=== PATIENT | male | born 1995 | race Caucasian/White ===

== ENCOUNTER → 2018-01-17 16:49 | Outpatient (CLI) | payer OTHER, SELFPAY ==
--- NOTE | 2018-01-17 16:59 | RAD_ITS ---
HISTORY: low back pain COMPARISON: None FINDINGS: Mild levoscoliosis which measures approximately 15. Straightening of the lumbar spine with loss of the normal lumbar lordosis. Lumbar vertebra are normal in height. No fracture. Disc space heights are grossly preserved. Posterior elements appear intact. No spondylolisthesis. SI joints appear preserved. RAD/L/S Spine Min 4 Views IMPRESSION: 1. Mild lumbar levoscoliosis with loss of the normal lumbar lordosis. 2. No fracture or bony abnormality. at 0103 Reported and signed by: Roberto Alexandre MD Electronically Signed: Roberto Alexandre, at 1:00 EST Tel , Service support ,
== END ==
LOC: MTLAB 16:56 → MTRAD 16:58
PROVIDERS: Family Provider Family Medicine; PCP Family Medicine; Referring Provider Family Medicine; Visit Provider Family Medicine
DX: M54.5 Low back pain (principal)
CPT/HCPCS: 72110

== ENCOUNTER 2018-03-04 13:00 | Outpatient (RCR) | payer OTHER, SELFPAY ==
--- NOTE | 2018-01-26 10:04 | HP.PTEVAL ---
Patient's Visit Information KATELYNN FLORES is a 22 year old M referred to Physical Therapy by Rome Quintero with a diagnosis of LOW BACK PAIN. Date of Evaluation: 01/26/18 Physical Therapist: Leeanne Quinones Visit Plan Frequency: 2-3x /Week Duration: 4-6 Weeks Plan: POSTURE CORRECTION/STRENGTHENING, INSTRUCTION IN APPROPRIATE BODY MECHANICS AND ACTIVITY MODIFICATIONS. DLS STARTING WITH A NEUTRAL SPINE PROGRESSING ROM TOLERATED. KEITH LE ROM, STRETCHING AND STRENGTHENING. HEP INSTRUCTION. - Subjective Subjective: *GOES BY KIRAN*. Work/Leisure: UNEMPLOYEED. WAS WORKING FOR [employer] ABOUT A MONTH ON [employer] UNTIL EARLY LAST MONTH BUT QUIT HIS JOB DUE TO HIS BACK PAIN. 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 GRADUATED WITH A DEGREE IN HEALTH AND HUMAN PERFORMANCE FROM [employer] JULY 2017. PLAYED TENNIS IN COLLEGE FOR 4 YEARS. SOCIAL - LIVING WITH PARENTS. Disability: NO. Present symptoms: LEFT LOW BACK ONLY. PATIENT DENIES ANY OTHER SX'S. Present since: APR 2017. Pain Scale: WORST 6/10, LEAST /10. Currently: 03/17. Commenced as a result of: NO APPARENT REASON. Symptoms at onset: LEFT LOW BACK - SAME. Worse: STANDING, ANY PHYSICAL ACTIVITY INVOLVING ANY LIFTING. BENDING. TRYING TO PUT SOCKS ON. TAKING LONG WALKS. TRYING TO WORK OUT - STRENGTH AND CONDITIONING. TRYING TO KICK LEFT LEG OUT STRAIGHT. Better: NOTHING. Disturbed sleep: NO. Previous history/Previous treatment: UNREMARKABLE. ONLY ONE MD VISIT EVER FOR LOW BACK WHICH WAS THIS EPISODE WITH DR. QUINTERO. Coughing/sneezing/straining: POSITIVE. Gait: NORMAL. Difficulty initiating urinatin: NO. Accidents: NO. Unexplained weight loss: NO. Imaging: LOW BACK X-RAYS - SLIGHT CURVATURE. PMH: UNREMARKABLE. Recent major surgery: NO. PLOF (Prior Level of Function): PATIENT REPORTS HE WAS ABLE TO WORK OUT REGULARLY, BEND DOWN AND TOUCH HIS TOES, TAKE LONG WALKS, PUT SOCKS ON WITH EASE AND BASICALLY HAD UNLIMITED ACTIVITY PRIOR TO APR 2017 WHEN HIS BACK STARTED HURTING FOR NO APPARENT REASON. - Objective Sitting/Standing Posture: POOR. Lordosis: REDUCED. Lateral shift: NO. Relevant shift: N/A. Active Correction of posture: NE. Other Observations: INDEP GAIT INTO PT WITH NO GROSS DEVIATIONS NOTED. INDEP TRANSFERS. Motor deficit: KEITH LE'S 5/5 WITH MMT'ING EXCEPT LEFT HIP 4/5. Sensory deficit: NO. ROM deficit: TIGHT KEITH HS'S LEFT > RIGHT. Reflexes: RIGHT QUAD HYPER-REFLEXIA 3/2 (PATIENT REPORTS HE NOTICED IT 5 YEARS AGO), LEFT QUAD 2/2, KEITH ACHILLES 2/2. Dural Signs: POSITIVE LLE. Lumbar mvmt loss: flex - MIN. ext - MIN. R SG - NIL. L SG - MIN. Core strength: POOR. Palpation: INCREASED MUSCLE TONE KEITH LUMBAR PARASPINALS. NO ACUTE TENDERNESS OR PRESSURE WITH PALPATION OF THORACIC OR LUMBAR SPINE EXCEPT L45 REGION. OTHER: ABLE TO ABOLISH LEFT LOW BACK PAIN WITH 30 REPETITIONS OF REP EIL. - Goals Goal 1:: DECREASE C/O LEFT LOW BACK PAIN Goal Time Frame: 4-6 Weeks Goal 2:: IMPROVE STANDING, WALKING, BENDING, LIFTING, WORK AND RECREATIONAL FUNCTION Goal Time Frame: 4-6 Weeks Goal 3:: INSTRUCT IN PROPHYLAXIS Goal Time Frame: 4-6 Weeks - Rehabilitation Potential Rehabilitation Potential: Good - Anticipated Interventions Patient/Client Instruction: Educate patient on: Condition, Plan of Care, Risk Factors, Benefits of Fitness Program For the Purpose of:: To improve self management Therapeutic Exercise to Include: Strength training, Body mechanics, Postural training, Dynamic Lumbar Stabilization For the Purpose of:: To decrease pain, To decrease swelling/inflammation, To improve muscle performance and motor function, To increase tolerance to activity/condition/position, To improve ability of physical actions for home/community/work/leisure TENS: Yes IF ES: Yes Cryotherapy (ice pack, ice massage): Yes Thermo therapy (hot pack): Yes Ultrasound (thermal/non thermal): Yes For the Purpose of:: To decrease pain, To decrease swelling/inflammation, To increase ROM, To improve nutrient delivery to tissue Thank you for the opportunity to evaluate your patient. For Medicare and Medicare HMO plans, please review the plan of care and approve it. It will need to be FAXED BACK to us at [phone] for Medicare purposes. Please let me know if there are questions or concerns regarding this plan of care. Physician Signature: Date:
--- NOTE | 2018-03-04 13:37 | HP.PTDCSUM ---
HP - PT D/C Summary It has been my pleasure to treat KATELYNN FLORES under orders from Rome Quintero MD, for the diagnosis of LOW BACK PAIN for a total of 9 visit(s). Discharge Date: 03/04/18 Please see the following information for a summary of their discharge status. - Subjective Subjective: PATIENT REPORTS HE HASN'T HAD MORE THAN ABOUT 5 MIN OF MILD PAIN SINCE LAST VISIT. - Pain LOW BACK Pain Intensity (Out of 10): 0 RIGHT SHOULER Pain Intensity (Out of 10): 0 THORACIC Pain Intensity (Out of 10): 0 - Overall Improvement % Improvement: 90 - Objective Objective/Function: ALL GOALS MET. ANTICIPATE THAT PATIENT WILL CONTINUE TO IMPROVE WITH TIME AND INDEP EX. NO PAIN PROVOKED WITH ASSESSMENT OR EX TODAY. LUMBAR OSWESTRY SCORE HAS IMPROVED FROM 11 TO 1. PATIENT HAS FULL LUMBAR ROM ALL PLANES WITH OUT PAIN. GOOD CORE STRENGTH. 5/5 KEITH LE STRENGTH. INDEP WITH EX PROGRAM. - Goals Goal 1:: DECREASE C/O LEFT LOW BACK PAIN Goal Progress: Goal Met Goal 2:: IMPROVE STANDING, WALKING, BENDING, LIFTING, WORK AND RECREATIONAL FUNCTION Goal Progress: Goal Met Goal 3:: INSTRUCT IN PROPHYLAXIS Goal Progress: Goal Met - Plan Plan: D/C. PATIENT AGREEABLE. - D/C Information If there are questions or concerns regarding this patient's physical therapy, please feel free to call me at [phone]. Thank you for the referral of this patient. Sincerely, Leeanne Beth, PT, Cert MDT
== END 2018-03-04 19:00 | disposition home or self-care (01) ==
LOC: PT 13:00
PROVIDERS: Family Provider Family Medicine; PCP Family Medicine; Referring Provider Family Medicine; Visit Provider Family Medicine
DX: M54.5 Low back pain (principal)
CPT/HCPCS: 97014; 97035; 97110; 97140; 97161; 97530; G0283